=== PATIENT | female | born 1955 | race Caucasian/White ===

== ENCOUNTER 2018-06-06 17:50 | Emergency (ER) | payer BC ==
[~2018-06-06] VITALS: Ht 157.5 cm; Wt 74.8 kg
[2018-06-06] MEDS ORDERED: NABUMETONE750 MG (18:20)
[2018-06-06] MEDS ORDERED: CIPRO500 MG (18:20)
== END 2018-06-06 23:29 | disposition home or self-care (01) ==
LOC: ER 17:50
DX: S70.361S Insect bite (nonvenomous), right thigh, sequela (principal); L02.415 Cutaneous abscess of right lower limb; B95.61 Methicillin susceptible Staphylococcus aureus infection as the cause of diseases classified elsewhere; L03.012 Cellulitis of left finger; W57.XXXS Bitten or stung by nonvenomous insect and other nonvenomous arthropods, sequela